=== PATIENT | male | born 1940 | race Caucasian/White ===

== ENCOUNTER 2016-09-02 22:34 | Emergency (ER) | payer MEDICARE ==
[~2016-09-02] VITALS: Ht 180.3 cm; Wt 103.0 kg
[~2016-09-02 22:34] MED LIST: BABY ASPIRIN81 MG OR; CIPRO500 MG OR; FISH OIL1000 MG OR; LISINOPRIL10 MG PO; LOPRESSOR25 MG PO; LORTAB 10 OR; LORTAB 5 OR; MEDDOSEPAK PO; MULTI VIT OR; OMEPRAZOLE20 MG PO; PREVACID30 M2 OR; PRILOSEC20 MG PO; PRINIVIL5 MG PO; PROAIR HFA IN; REGLAN10 MG OR; SIMVASTATIN40 MG OR; SIMVASTATIN40 MG PO; TAMSULOSIN HCL0.4 MG PO
[2016-09-02 23:36] LABS: HEMATOCRIT 42.5 % (39.0-50.0); HEMOGLOBIN 13.9 g/dl (14.0-18.0); IMMATURE GRANULOCYTES 0.6 % (0.0-1.0); MEAN CORPUSCULAR HGB 29.8 pG CALC (26.0-32.0); MEAN CORPUSCULAR HGB CONC 32.7 g/L CALC (32.0-36.0); NEUT# 7.3 thou/uL (1.82-7.42); RED BLOOD COUNT 4.67 mill/uL (4.70-6.10); RED CELL DISTRI WIDTH 18.5 % (11.5-15.5)
[2016-09-02 23:45] LABS: ALBUMIN 4.3 g/dL (3.2-5.0); ALKALINE PHOSPHATASE 91 u/l (38-126); ANION GAP 14 (6-22 (CALC)); BILIRUBIN, TOTAL 1.5 mg/dL (0.0-1.4); BUN 24 mg/dL (8-23); BUN/CREATININE RATIO 24 (12-20 (CALC)); CALCIUM 9.3 mg/dL (8.4-10.2); CARBON DIOXIDE 26 mmol/l (22-30); CHLORIDE 105 mmol/l (95-108); GFR > 60 ML/MIN (>=60 (CALC)); GFR FOR AFR.AMER. > 60 ML/MIN (>=60 (CALC)); GLUCOSE 139 mg/dL (82-115); POTASSIUM 4.1 mmol/l (3.5-5.1); SGOT/AST 28 u/l (19-48); SGPT/ALT 41 u/l (11-66); SODIUM 142 mmol/l (137-146); TOTAL PROTEIN 7.7 g/dL (6.3-8.2)
[2016-09-02 23:57] LABS: MYOGLOBIN 65 ng/mL (0 - 121)
[2016-09-03] MEDS ORDERED: MEDDOSEPAK PO (01:38)
[2016-09-03] MEDS ORDERED: ZPAK PO (01:38)
[2016-09-03 02:16] VITALS: BP 121/59
== END 2016-09-03 02:11 | disposition left against medical advice (07) ==
LOC: ED 22:34
PROVIDERS: Emergency Medicine
DX: J44.1 Chronic obstructive pulmonary disease with (acute) exacerbation (principal); Z91.19 Patient's noncompliance with other medical treatment and regimen; Z77.22 Contact with and (suspected) exposure to environmental tobacco smoke (acute) (chronic); J18.9 Pneumonia, unspecified organism; R50.9 Fever, unspecified; R06.02 Shortness of breath
CPT/HCPCS: Q9967

== ENCOUNTER 2016-09-21 16:31 | Inpatient (IN) | payer MEDICARE ==
[~2016-09-21] VITALS: Ht 177.8 cm; Wt 95.0 kg
[~2016-09-21 16:31] MED LIST changes: +ZPAK PO
[2016-09-21 17:20] VITALS: BP 115/59
[2016-09-21] MEDS ORDERED: TENORMIN PO (17:31)
[2016-09-21 18:28] LABS: HEMATOCRIT 43.5 % (39.0-50.0); HEMOGLOBIN 14.1 g/dl (14.0-18.0); MEAN CELL VOLUME 91.4 fL CALC (80.0-100.0); MEAN CORPUSCULAR HGB 29.6 pG CALC (26.0-32.0); MEAN CORPUSCULAR HGB CONC 32.4 g/L CALC (32.0-36.0); RED BLOOD COUNT 4.76 mill/uL (4.70-6.10); RED CELL DISTRI WIDTH 18.4 % (11.5-15.5)
[2016-09-21 18:50] LABS: ALBUMIN 3.9 g/dL (3.2-5.0); ALKALINE PHOSPHATASE 83 u/l (38-126); ANION GAP 15 (6-22 (CALC)); BILIRUBIN, TOTAL 1.4 mg/dL (0.0-1.4); BUN 16 mg/dL (8-23); BUN/CREATININE RATIO 18 (12-20 (CALC)); CALCIUM 9.6 mg/dL (8.4-10.2); CARBON DIOXIDE 24 mmol/l (22-30); CHLORIDE 107 mmol/l (95-108); CREATININE 0.9 mg/dL (0.7-1.3); GFR > 60 ML/MIN (>=60 (CALC)); GFR FOR AFR.AMER. > 60 ML/MIN (>=60 (CALC)); GLUCOSE 117 mg/dL (82-115); POTASSIUM 4.4 mmol/l (3.5-5.1); SGOT/AST 35 u/l (19-48); SGPT/ALT 60 u/l (11-66); SODIUM 142 mmol/l (137-146); TOTAL PROTEIN 6.8 g/dL (6.3-8.2)
[2016-09-21 22:34] VITALS: BP 133/73
[2016-09-22 03:42] VITALS: BP 136/79
[2016-09-22 08:16] VITALS: BP 131/69
[2016-09-22 11:15] VITALS: BP 134/62
[2016-09-22 15:46] VITALS: BP 119/54
[2016-09-22 19:45] VITALS: BP 125/67
[2016-09-22 20:22] LABS: URINE BILIRUBIN - DIPSTICK NEGATIVE (NEGATIVE); URINE BLOOD DIPSTICK NEGATIVE (NEGATIVE); URINE CLARITY CLEAR; URINE COLOR YELLOW; URINE GLUCOSE - DIPSTICK 100 mg/dL (NEGATIVE); URINE KETONE NEGATIVE (NEGATIVE); URINE LEUK ESTERASE NEGATIVE (Negative); URINE NITRITE - DIPSTICK NEGATIVE (Negative); URINE PROTEIN - DIPSTICK 100 mg/dL (NEG-TRACE); URINE SPECIFIC GRAVITY >=1.030; URINE UROBILINOGEN - DIPSTICK 0.2 E.U./dL (0.2)
[2016-09-22 20:30] LABS: URINE SQUAMOUS EPITHELIAL CELL FEW EPI/hpf (0-FEW)
[2016-09-23 00:20] VITALS: BP 133/69
[2016-09-23 04:54] VITALS: BP 126/68
[2016-09-23 06:10] LABS: HEMATOCRIT 41.9 % (39.0-50.0); HEMOGLOBIN 13.3 g/dl (14.0-18.0); IMMATURE GRANULOCYTES 0.5 % (0.0-1.0); MEAN CELL VOLUME 94.6 fL CALC (80.0-100.0); MEAN CORPUSCULAR HGB CONC 31.7 g/L CALC (32.0-36.0); NEUT# 9.45 thou/uL (1.82-7.42); RED BLOOD COUNT 4.43 mill/uL (4.70-6.10); RED CELL DISTRI WIDTH 18.2 % (11.5-15.5)
[2016-09-23 06:32] LABS: ANION GAP 14 (6-22 (CALC)); BUN 31 mg/dL (8-23); BUN/CREATININE RATIO 35 (12-20 (CALC)); CALCIUM 9.5 mg/dL (8.4-10.2); CARBON DIOXIDE 27 mmol/l (22-30); CHLORIDE 103 mmol/l (95-108); CREATININE 0.9 mg/dL (0.7-1.3); GFR > 60 ML/MIN (>=60 (CALC)); GFR FOR AFR.AMER. > 60 ML/MIN (>=60 (CALC)); GLUCOSE 164 mg/dL (82-115); POTASSIUM 5.1 mmol/l (3.5-5.1); SODIUM 139 mmol/l (137-146)
[2016-09-23 09:20] VITALS: BP 161/63
[2016-09-23 11:39] VITALS: BP 100/63; BP 129/69
[2016-09-23 16:15] VITALS: BP 125/69
[2016-09-23 20:27] VITALS: BP 124/67
[2016-09-24 00:35] VITALS: BP 115/53
[2016-09-24 04:39] VITALS: BP 97/57
[2016-09-24 06:20] LABS: HEMATOCRIT 41.1 % (39.0-50.0); HEMOGLOBIN 12.9 g/dl (14.0-18.0); IMMATURE GRANULOCYTES 0.5 % (0.0-1.0); MEAN CELL VOLUME 94.3 fL CALC (80.0-100.0); MEAN CORPUSCULAR HGB 29.6 pG CALC (26.0-32.0); MEAN CORPUSCULAR HGB CONC 31.4 g/L CALC (32.0-36.0); NEUT# 8.89 thou/uL (1.82-7.42); RED BLOOD COUNT 4.36 mill/uL (4.70-6.10); RED CELL DISTRI WIDTH 18.1 % (11.5-15.5)
[2016-09-24 06:34] LABS: ANION GAP 16 (6-22 (CALC)); BUN 30 mg/dL (8-23); BUN/CREATININE RATIO 40 (12-20 (CALC)); CALCIUM 9.4 mg/dL (8.4-10.2); CARBON DIOXIDE 25 mmol/l (22-30); CHLORIDE 103 mmol/l (95-108); CREATININE 0.7 mg/dL (0.7-1.3); GFR > 60 ML/MIN (>=60 (CALC)); GFR FOR AFR.AMER. > 60 ML/MIN (>=60 (CALC)); GLUCOSE 165 mg/dL (82-115); SODIUM 138 mmol/l (137-146)
[2016-09-24 08:07] VITALS: BP 114/53
[2016-09-24 16:20] VITALS: BP 140/70
[2016-09-24 19:45] VITALS: BP 136/54
[2016-09-24 23:17] VITALS: BP 125/65
[2016-09-25 04:15] VITALS: BP 120/62
[2016-09-25 05:10] LABS: HEMATOCRIT 39.3 % (39.0-50.0); HEMOGLOBIN 12.4 g/dl (14.0-18.0); IMMATURE GRANULOCYTES 0.3 % (0.0-1.0); MEAN CELL VOLUME 93.1 fL CALC (80.0-100.0); MEAN CORPUSCULAR HGB 29.4 pG CALC (26.0-32.0); MEAN CORPUSCULAR HGB CONC 31.6 g/L CALC (32.0-36.0); NEUT# 6.57 thou/uL (1.82-7.42); RED BLOOD COUNT 4.22 mill/uL (4.70-6.10); RED CELL DISTRI WIDTH 17.8 % (11.5-15.5)
[2016-09-25 05:15] LABS: ANION GAP 12 (6-22 (CALC)); BUN 27 mg/dL (8-23); BUN/CREATININE RATIO 37 (12-20 (CALC)); CARBON DIOXIDE 26 mmol/l (22-30); CHLORIDE 103 mmol/l (95-108); CREATININE 0.7 mg/dL (0.7-1.3); GFR > 60 ML/MIN (>=60 (CALC)); GFR FOR AFR.AMER. > 60 ML/MIN (>=60 (CALC)); GLUCOSE 95 mg/dL (82-115); POTASSIUM 4.6 mmol/l (3.5-5.1); SODIUM 137 mmol/l (137-146)
[2016-09-25 07:45] VITALS: BP 128/57
[2016-09-25 11:39] VITALS: BP 113/66
[2016-09-25] MEDS ORDERED: IPRATROPIU0.5 MG/3 M IN (13:32)
[2016-09-25] MEDS ORDERED: PREDNISONE10 MG PO (13:32)
[2016-09-25] MEDS ORDERED: NEBULIZER COMPRESSOR (13:32)
[2016-09-25 15:23] VITALS: BP 128/70
== END 2016-09-25 18:30 | DRG 189 ==
LOC: ENPENDDIS → MS2 16:31
PROVIDERS: Internal Medicine; Nurse Practitioner Family; ADMIT Internal Medicine; ATTEND Internal Medicine
DX: J96.21 Acute and chronic respiratory failure with hypoxia (principal); J44.1 Chronic obstructive pulmonary disease with (acute) exacerbation; I10 Essential (primary) hypertension; N40.0 Benign prostatic hyperplasia without lower urinary tract symptoms; Z87.891 Personal history of nicotine dependence

== ENCOUNTER 2017-03-30 15:06 | Observation (INO) | payer MEDICARE ==
[~2017-03-30] VITALS: Ht 177.8 cm; Wt 111.0 kg
[~2017-03-30 15:06] MED LIST changes: +IPRATROPIU0.5 MG/3 M IN; +NEBULIZER COMPRESSOR; +PREDNISONE10 MG PO; +TENORMIN PO
[2017-03-30 20:13] LABS: URINE BILIRUBIN - DIPSTICK NEGATIVE (NEGATIVE); URINE BLOOD DIPSTICK SMALL (NEGATIVE); URINE COLOR YELLOW; URINE GLUCOSE - DIPSTICK NEGATIVE (NEGATIVE); URINE KETONE NEGATIVE (NEGATIVE); URINE NITRITE - DIPSTICK NEGATIVE (Negative); URINE PROTEIN - DIPSTICK 100 mg/dL (NEG-TRACE); URINE SPECIFIC GRAVITY 1.025; URINE UROBILINOGEN - DIPSTICK 0.2 E.U./dL (0.2)
[2017-03-30 20:17] LABS: URINE CLARITY TURBID; URINE LEUK ESTERASE MODERATE (NEGATIVE)
--- NOTE | 2017-03-30 20:21 | NUR ---
PT TAKEN TO ER ROOM 9. #16 BORGES INSERTED. IV ESTABLISHED. PT TRANSFERED TO ER O2 VIA NC. PT LAUGHING & JOKING WITH STAFF.
[2017-03-30 20:27] LABS: URINE SQUAMOUS EPITHELIAL CELL FEW EPI/hpf (0-FEW); URINE WBC TNTC WBC/hpf (0-5)
[2017-03-30 20:28] LABS: URINE BACTERIA FEW hpf
[2017-03-30 20:51] LABS: HEMATOCRIT 39.5 % (39.0-50.0); HEMOGLOBIN 13.6 g/dl (14.0-18.0); IMMATURE GRANULOCYTES 0.4 % (0.0-1.0); MEAN CORPUSCULAR HGB 32.4 pG CALC (26.0-32.0); MEAN CORPUSCULAR HGB CONC 34.4 g/L CALC (32.0-36.0); NEUT# 10.31 thou/uL (1.82-7.42); RED BLOOD COUNT 4.2 mill/uL (4.70-6.10)
[2017-03-30] MEDS ORDERED: METOPROL TAR25 MG PO (21:04)
[2017-03-30] MEDS ORDERED: FENOFIBRATE145 MG PO (21:04)
[2017-03-30 21:07] LABS: ALBUMIN 4.6 g/dL (3.2-5.0); BILIRUBIN, TOTAL 1.2 mg/dL (0.0-1.4); CREATININE 1.4 mg/dL (0.7-1.3); POTASSIUM 4.6 mmol/l (3.5-5.1); TOTAL PROTEIN 7.6 g/dL (6.3-8.2)
--- NOTE | 2017-03-30 22:06 | NUR ---
Admission Note Report Given to: AMBER Transported by: Wheelchair X Stretcher Transported with: X Nurse Transporter X Patent IV X O2 X Sock Boarder REPORT TO MADIHA CLARK- DOING ADMISSION IN THE ER.
[2017-03-30 22:20] VITALS: BP 113/58
--- NOTE | 2017-03-30 23:21 | NUR ---
PT ARRIVED TO UNIT VIA STRETCHER WITH ER STAFF. AMBULATED INDEPENDENTLY TO BED WITH SUPERVISION. DENIES PAIN CURRENTLY. RESPIRATIONS EVEN AND UNLABORED ON OXYGEN. ORIENTED TO ROOM AND CALL LIGHT SYSTEM. PLAN OF CARE DISCUSSED. PT ENCOURAGED TO VERBALIZE CONCERNS. STATES UNDERSTANDING. JIMÉNEZ CURRENCY SENT TO SAFE. SAFETY MEASURES IN PLACE. CALL LIGHT WITHIN REACH.
--- NOTE | 2017-03-31 01:55 | NUR ---
PT ASLEEP AT THIS TIME. HAS BEEN QUIET SINCE ADMISSION; HAS NO REQUESTS WHEN ASKED. DENIES PAIN CURRENTLY. RESPIRATIONS EVEN AND UNLABORED ON OXYGEN. IV FLUIDS INFUSING WITHOUT DIFFICUTLY. SAFETY MEASURES IN PLACE. CALL LIGHT WITHIN REACH.
--- NOTE | 2017-03-31 04:03 | NUR ---
PT ASLEEP AT THIS TIME WITH NO SIGNS OF DISCOMFORT NOTED. RESPIRATIONS EVEN AND UNLABORED. IV SITE APPEARS HEALTHY AND FLUIDS INFUSING WITHOUT DIFFICULTY. USES CALL LIGHT PRN FOR ASSISTANCE. SAFETY MEASURES IN PLACE. CALL LIGHT WITHIN REACH.
[2017-03-31 04:30] VITALS: BP 116/61; BP 135/64
--- NOTE | 2017-03-31 06:18 | NUR ---
CONSULT CALLED TO THE OFFICE OF DR. FIELD.
[2017-03-31 07:21] LABS: HEMATOCRIT 33.4 % (39.0-50.0); HEMOGLOBIN 11.6 g/dl (14.0-18.0); MEAN CELL VOLUME 94.4 fL CALC (80.0-100.0); MEAN CORPUSCULAR HGB 32.8 pG CALC (26.0-32.0); MEAN CORPUSCULAR HGB CONC 34.7 g/L CALC (32.0-36.0); RED BLOOD COUNT 3.54 mill/uL (4.70-6.10); RED CELL DISTRI WIDTH 15.8 % (11.5-15.5)
[2017-03-31 07:31] LABS: ANION GAP 14 (6-22 (CALC)); BUN 26 mg/dL (8-23); BUN/CREATININE RATIO 25 (12-20 (CALC)); CARBON DIOXIDE 25 mmol/l (22-30); CHLORIDE 109 mmol/l (95-108); GFR > 60 ML/MIN (>=60 (CALC)); GFR FOR AFR.AMER. > 60 ML/MIN (>=60 (CALC)); SODIUM 143 mmol/l (137-146)
[2017-03-31 08:30] VITALS: BP 140/63
--- NOTE | 2017-03-31 08:30 | NUR ---
ASSESSMENT IS COMPLETED: IV SITE IS FREE FROM REDNESS OR EDEMA. TELE MONITOR IN PLACE. BORGES DRAINING YELLOW URINE. NO DISTRESS NOTED. CONTINUE TO OSEBRVE AND MONITOR.
[2017-03-31 11:30] VITALS: BP 139/68
--- NOTE | 2017-03-31 11:30 | NUR ---
IN TO VISIT WITH PT AND HE WILL BE DISCHARGED WITH CATHETER.
--- NOTE | 2017-03-31 12:15 | NUR ---
PT IS RELAXING IN BED WITH NO DISTRESS NOTED. IV SITE IS FREE FROM REDNESS OR EDEMA. CONTINUE TO OBSERVE AND MONITOR.
[2017-03-31] MEDS ORDERED: BACTRIM DS1 TAB PO (13:08)
--- NOTE | 2017-03-31 16:30 | NUR ---
PT HAS BEEN RSTING IN BED WITH NO DISTRESS NOTED. CONTINUE TO OBSERVE AND MONITOR.
--- NOTE | 2017-03-31 16:44 | NUR ---
INFORMED PT RE: LEG BAG AND CHANGING TO REGULAR BAG AT NIGHT. DISCHARGE INSTRUCTIONS GIVEN. PT HAS HIS OWN CAR AND WILL DRIVE HOME. NO DISTRESS NOTED. IV SITE REMOVED AND CATHETER INTACT. CONTINUE TO OSBERVE AND MONITOR.
--- NOTE | 2017-03-31 18:07 | NUR ---
PT TRANSPORTED VIA WC TO PERSONAL VEHICLE. Discharge instructions given. Patient verbalizes understanding of same. Discharged in stable condition via Wheelchair to *Other with *Other. All belongings sent with pt. PT WENT HOME AND DROVE SELF. WILL CALL OFFICE ON SUNDAY IF REQUIRES A HOME HEALTH NURSE TO SEE HIM.
== END 2017-03-31 17:53 | disposition home or self-care (01) ==
LOC: ED 15:06 → ED-I 21:00 → ED 21:25 → MS2 21:26
PROVIDERS: Emergency Medicine; ADMIT Internal Medicine; ATTEND Internal Medicine
PROC: 0T9B70Z Drainage of Bladder with Drainage Device, Via Natural or Artificial Opening (ICD-10-PCS; principal; 2017-03-30)
DX: N40.1 Benign prostatic hyperplasia with lower urinary tract symptoms (principal); R33.8 Other retention of urine; R39.12 Poor urinary stream; N39.0 Urinary tract infection, site not specified; N17.9 Acute kidney failure, unspecified; I10 Essential (primary) hypertension; K21.9 Gastro-esophageal reflux disease without esophagitis; J96.11 Chronic respiratory failure with hypoxia; Z99.81 Dependence on supplemental oxygen; E78.5 Hyperlipidemia, unspecified; J43.9 Emphysema, unspecified; Z87.891 Personal history of nicotine dependence; Z87.442 Personal history of urinary calculi; R31.29 Other microscopic hematuria; R33.9 Retention of urine, unspecified
CPT/HCPCS: G0378

== ENCOUNTER 2018-08-09 02:34 | Emergency (ER) | payer MEDICARE ==
[~2018-08-09 02:34] MED LIST changes: +BACTRIM DS1 TAB PO; +FENOFIBRATE145 MG PO; +MEDROL4 M1 PO; +METOPROL TAR25 MG PO; +PULMICORT0.5MG/2ML IN; +SPIRIVA RE2.5 MCG/AC; +TRIAMCINOLON0.025 % EX; +ZITHROMAX250 MG PO
== END 2018-08-09 02:45 | disposition expired ==
LOC: ED 02:34
DX: I46.9 Cardiac arrest, cause unspecified (principal)